=== PATIENT | male | born 1980 | race Caucasian/White ===

== ENCOUNTER 2019-09-24 19:31 | Emergency (ER) | payer SELFPAY ==
[2019-09-24 20:00] VITALS: BP 110/90; PULSE 98; RESP 16; TEMP 37.2; O2SAT 97; BMI 29.9
--- NOTE | 2019-09-24 21:54 | XR_ITS ---
WS: [id number] XR chest 1V portable [id number] REASON FOR EXAM: cough/congestion FINDINGS: The mediastinum and heart were normal. The lung michel are well aerated. There is no pneumonia, pleural effusion, pulmonary edema, or mass e ffect. The hilum is and apices are normal. No osseous abnormalities. XR/XR chest 1V portable [id number] IMPRESSION: Negative chest for active pathology.
--- NOTE | 2019-09-24 21:56 | ED_ITS ---
HPI - URI/Sore Throat General: Chief Complaint: Upper Respiratory Infection Stated Complaint: sore throat/cough Time Seen by Provider: 09/24/19 21:48 Source: patient Mode of arrival: ambulatory Limitations: no limitations History of Present Illness: HPI Narrative: Patient is a very nice 39-year-old male who presents to ED today with complaints of a productive cough and hoarse v oice for the past 3 to 4 days. He states he ran a fever of 101 about 2 days ago but has been afebrile since. He denies any shortness of breath or difficulty breathing. He has no chest pains. Denies any sick contacts. He does work for [employer] but travel routes are local. He has not had any travel abroad or to geographically affected areas for coronavirus. MD elicited complaint: cough Exacerbating factors: nothing Relieving factors: nothing Associated symptoms: Reports fever(s) (afebrile over the past 48 hours); Deny abdominal pain, chills, chest pain, diarrhea, headache(s), nausea or vomiting Treatments prior to arrival: none Review of Systems Const: Reports: fever (afebrile over the past 48 hours); Denies: chills, body aches, change in appetite, change in weight or fatigue Eyes: Denies: change in vision, blurry vision or photophobia ENMT: Reports: other (hoarseness); Denies: throat pain, enlarged tonsils or painful swallowing Card: Denies: chest pain, palpitations, irregular heart rhythm, edema, lightheadedness, syncope or pre-syncope Resp: Reports: productive cough, change in phlegm color and chest congestion; Denies: shortness of breath, pain on inspiration or coughing up blood GI: Denies: abdominal pain, nausea, vomiting or diarrhea : Denies: flank pain Musc: Denies: neck pain or back pain Skin/Breast: Denies: rash Neuro: Denies: headache, numbness in extremities, weakness in extremities or changes in sensation PFS ED PFSH: Social History Smoking and tobacco status: current every day smoker Physical Exam Const: COMMON NORMALS: no apparent distress, average body habitus, oriented x3, no limitations, healthy appearing, alert and well nourished HENMT: COMMON NORMALS: normocephalic, head/scalp atraumatic, hearing grossly normal bilaterally, external ears normal, EAC's normal, TM's normal bilaterally, external nose normal, nasal mucous membranes and turbinates normal, moist oral mucous membranes, dentition normal and gingiva normal HEAD & SCALP: normocephalic and atraumatic NOSE: external nose normal and nasal mucous membranes and turbinates normal EXTERNAL EAR: Yes external ears normal E XTERNAL AUDITORY CANAL: EAC's normal TYMPANIC MEMBRANE: TM's normal bilaterally THROAT: posterior oropharynx normal, tonsils normal, uvula midline and other (post nasal drainage) OTHER: hoarseness Eye: COMMON NORMALS: PERRL and EOMs intact bilaterally PUPIL: Yes PERRL Neck/C-Spine: COMMON NORMALS: full ROM, no lymphadenopathy and no meningeal signs Resp: COMMON NORMALS: normal respiratory effort and clear to auscultation bilaterally AUSCULTATION: clear to auscultation bilaterally Cardio: COMMON NORMALS: regular rate and regular rhythm RATE: regular rate RHYTHM: regular rhythm Extremity: COMMON NORMALS: normal to inspection Neuro: COMMON NORMALS: oriented x3 SENSORIUM/ORIENTATION: Yes alert MENINGEAL SIGNS: Yes no meningeal signs Skin: COMMON NORMALS: no rashes or lesions noted GENERAL SKIN EXAM: no rashes or lesions noted Course Vital Signs: Vital signs: Vital Signs Temperature 98.9 F 09/24/19 20:00 Pulse Rate 98 09/24/19 20:00 Respiratory Rate 16 09/24/19 20:00 Blood Pressure 110/90 09/24/19 20:00 Pulse Oximetry 97 09/24/19 20:00 MDM - URI/Sore Throat Imaging Data^: CXR: My impression: NAD Discharge Plan Discharge Patient Disposition: Home, Self-Care Clinical Impression: Bronchitis Condition: Stable Prescriptions: New albuterol sulfate 90 mcg/actuation HFA aerosol inhaler 2 inh INHALATION Q4H PRN (Reason: shortness of breath) Qty: 6.7 RF: 0 prednisone 10 mg tablet 60 mg PO DAILY 5 Days Qty: 30 RF: 0 doxycycline monohydrate 100 mg capsule 100 mg PO Q12H 10 Days Qty: 20 RF: 0 Discharge Orders: Discharge Order (Routine); Ordered 09/24/19 Ordered By: Winnie Farris Referrals: Marck Frank [Primary Care Provider] - Discharge Diet: Usual diet Discharge Activity: Increase activity as tolerated Patient Instructions: Acute Bronchitis (ED) Coding Level of Care Code ED [employer]
[2019-09-24 22:44] VITALS: BP 119/84; PULSE 90; RESP 18; TEMP 36.5; O2SAT 98
== END 2019-09-24 22:45 | disposition home or self-care (01) ==
LOC: ER 09-25 17:49
PROVIDERS: Emergency Provider Physician Assistant; Family Provider Family Medicine; PCP Family Medicine
DX: J40 Bronchitis, not specified as acute or chronic (principal); F17.210 Nicotine dependence, cigarettes, uncomplicated
CPT/HCPCS: 12345; 71045; 99281; 99282